=== PATIENT | female | born 1975 | race Caucasian/White ===

== ENCOUNTER 2023-04-30 07:45 | Day surgery (SDC) | payer OTHER ==
[~2023-04-30 07:45] MED LIST: PREVACID30 MG; [UNRECOGNIZED DRUG - OTHER]
== END 2023-04-30 12:00 | disposition home or self-care (01) ==
LOC: AMB-ENDOS 07:45
PROVIDERS: ATTEND Surgery
DX: D12.5 Benign neoplasm of sigmoid colon (principal); K57.30 Diverticulosis of large intestine without perforation or abscess without bleeding; D37.4 Neoplasm of uncertain behavior of colon; R19.4 Change in bowel habit; R19.5 Other fecal abnormalities; Z20.822 Contact with and (suspected) exposure to COVID-19